=== PATIENT | female | born 1960 | race Caucasian/White ===

== ENCOUNTER 2016-09-09 11:32 | Day surgery (SDC) | payer MEDICARE, OTHER ==
--- NOTE | ~2016-09-09 | EGD ---
EGD REPORT [facility] [address] [address] NAME: SIMIN MOSQUERA : [birth year] STATUS : REG [facility] [place] PAT#: [id number] AGE: 56 ADM/REG DATE : 09/09/16 MR#: [id number] REPORT SERV DATE: 09/09/16 DICTATED BY: SARAH CISNEROS DATE: 09/09/16 REPORT STATUS : Draft TRANSCRIBED BY: [facility] DATE: 09/09/16 Endoscopy Center Patient Name: Simin Mosquera Date of : 1960 Attending MD: SARAH CISNEROS MD Procedure Date No Time: 09/09/2016 Procedure: Colonoscopy Indications: High risk colon cancer surveillance: Personal history of colonic polyps Referring MD: NEYMAR MAY Medicines: Monitored Anesthesia Care Complications: No immediate complications. Procedure: Pre-Anesthesia Assessment: - ASA Grade Assessment: IV - A patient with severe systemic disease that is a constant threat to life. After I obtained informed consent, the scope was passed under direct vision. Throughout the procedure, the patient's blood pressure, pulse, and oxygen saturations were monitored continuously. The PCF H190L [id number] was introduced through the anus and advanced to the sigmoid colon. The colonoscopy was performed with moderate difficulty due to poor bowel prep. The patient tolerated the procedure well. The quality of the bowel preparation was poor. Findings: The digital rectal exam was normal. Pertinent negatives include no palpable rectal lesions. A moderate amount of semi-solid stool was found in the rectum and in the sigmoid colon, interfering with visualization. Impression: - Preparation of the colon was poor. - Stool in the rectum and in the sigmoid colon. Recommendation: - Patient has a contact number available for emergencies. The signs and symptoms of potential delayed complications were discussed with the patient. Return to normal activities tomorrow. Written discharge instructions were provided to the patient. - Regular diet. - Continue present medications. - Repeat colonoscopy at the next available appointment because the bowel preparation was poor. - Use constipation prep for next exam. EGD REPORT [facility] [address] [address] NAME: SIMIN MOSQUERA : [birth year] STATUS : REG [facility]#: [id number] AGE: 56 ADM/REG DATE : 09/09/16 MR#: [id number] REPORT SERV DATE: 09/09/16 DICTATED BY: SARAH CISNEROS DATE: 09/09/16 REPORT STATUS : Draft TRANSCRIBED BY: Kuaidi Dache DATE: 09/09/16 Procedure Code(s): --- Professional --- 12031, 52, Colonoscopy, flexible, proximal to splenic flexure; diagnostic, with or without collection of specimen(s) by brushing or washing, with or without colon decompression (separate procedure) Diagnosis Code(s): --- Professional --- Z86.010, Personal history of colonic polyps CPT copyright 2013 [employer]. All rights reserved. The codes documented in this report are preliminary and upon machine stoppage frequency checker review may be revised to meet current compliance requirements. SARAH CISNEROS MD 09/09/2016 1:29 PM This report has been signed electronically. Number of Addenda: 0 Note Initiated On: 09/09/2016 1:01 PM Scope Withdrawal Time 0 hours 0 minutes 0 seconds [id number] [facility] [place] [id number]
--- NOTE | ~2016-09-09 | EGD ---
EGD REPORT [facility] [address] [address] NAME: SIMIN MOSQUERA : [birth year] STATUS : REG [facility] [place] PAT#: [id number] AGE: 56 ADM/REG DATE : 09/09/16 MR#: [id number] REPORT SERV DATE: 09/09/16 DICTATED BY: SARAH CISNEROS DATE: 09/09/16 REPORT STATUS : Draft TRANSCRIBED BY: [employer] DATE: 09/09/16 Endoscopy Center Patient Name: Simin Mosquera Date of : 1960 Attending MD: SARAH CISNEROS MD Procedure Date No Time: 09/09/2016 Procedure: Upper GI endoscopy Indications: Dysphagia, Heartburn Referring MD: NEYMAR MAY Medicines: Sedation Required Anesthesia Staff Assistance, Monitored Anesthesia Care Complications: No immediate complications. Procedure: Pre-Anesthesia Assessment: - ASA Grade Assessment: IV - A patient with severe systemic disease that is a constant threat to life. After obtaining informed consent, the endoscope was passed under direct vision. Throughout the procedure, the patient's blood pressure, pulse, and oxygen saturations were monitored continuously. The GIF H190 [id number] was introduced through the mouth, and advanced to the second part of duodenum. The upper GI endoscopy was accomplished without difficulty. The patient tolerated the procedure well. Findings: No endoscopic abnormality was evident in the esophagus to explain the patient's complaint of dysphagia. It was decided, however, to proceed with dilation of the entire esophagus. A guidewire was placed and the scope was withdrawn. Dilation was performed with a Savary dilator with no resistance at 48 Fr. Estimated blood loss: none. The Z-line was irregular and was found at the gastroesophageal junction. Biopsies were taken with a cold forceps for histology. Localized mild inflammation characterized by erythema was found in the gastric antrum. Biopsies were taken with a cold forceps for histology. The cardia and gastric fundus were normal on retroflexion. The duodenal bulb and 2nd part of the duodenum were normal. Impression: - No endoscopic esophageal abnormality to explain patient's dysphagia. Esophagus dilated. Dilated. - Z-line irregular, at the gastroesophageal junction. Biopsied. - Gastritis. Biopsied. - Normal duodenal bulb and 2nd part of the duodenum. Recommendation: - Patient has a contact number available for EGD REPORT [address] [address] NAME: SIMIN MOSQUERA : [birth year] STATUS : REG [facility] [place] PAT#: [id number] AGE: 56 ADM/REG DATE : 09/09/16 MR#: [id number] REPORT SERV DATE: 09/09/16 DICTATED BY: SARAH CISNEROS DATE: 09/09/16 REPORT STATUS : Draft TRANSCRIBED BY: [employer] DATE: 09/09/16 emergencies. The signs and symptoms of potential delayed complications were discussed with the patient. Return to normal activities tomorrow. Written discharge instructions were provided to the patient. - Regular diet. - Continue present medications. - Follow an antireflux regimen. Procedure Code(s): --- Professional --- 51760, Esophagogastroduodenoscopy, flexible, transoral; with insertion of guide wire followed by passage of dilator(s) through esophagus over guide wire 66579, Esophagogastroduodenoscopy, flexible, transoral; with biopsy, single or multiple Diagnosis Code(s): --- Professional --- R13.10, Dysphagia, unspecified K22.8, Other specified diseases of esophagus K29.70, Gastritis, unspecified, without bleeding R12, Heartburn CPT copyright 2013 [employer]. All rights reserved. The codes documented in this report are preliminary and upon project manager/team coach review may be revised to meet current compliance requirements. SARAH CISNEROS MD 09/09/2016 1:18 PM This report has been signed electronically. Number of Addenda: 0 Note Initiated On: 09/09/2016 1:05 PM Scope Withdrawal Time 0 hours 0 minutes 0 seconds [address] [place] [address]
[~2016-09-09 11:32] MED LIST: ACET500CAP PO; ADVAIR INH; ADVAIR250 INH; ALBUTEROL; ALLEGRA 180 MG180 MG PO; ALLEGRA180 PO; AMILORIDE5 MG PO; ASA5GR PO; ASTEPRO0.15 % NAS; CELEXA20 PO; ENDOCET1 TA3 PO; FLONASE NAS; FLONASE0.05 %; HCTZ25B PO; HCTZ50B PO; HUMALOG 50/50 SC; HUMALOG SC; HUMOLOG; HYDROCHLOROT12.5 MG PO; HYDROCHLOROT50 MG PO; KDUR20 PO; LEVOTHROID125 MCG PO; LEVOXYL100 MCG PO; LIPITOR80 MG PO; LOTENSIN HCT1 TA1 PO; MAGNESIUM PO; MSCONT15 PO; NEUR300 PO; NIASPAN500 PO; NOVOPENMIX SC; PRAVACHOL80 MG PO; PREM625 PO; PRILOSEC40 MG PO; PROAIR HFA INH; PROVHFA INH; SINGULAIR1 PO; SPIRO50 PO; SYMLIN SC; SYMLIN0.6 MG/ML SC; TOPAMAX100 PO; TOPAMAX200 MG PO; TRULICITY0.75 MG/0. SQ; V120 PO; VENTOLIN HFA INH; VIT D PO; VYTORIN 10/20 T1 TAB PO; ZANAFLEX4 MG PO; ZOCOR40 PO; ZYRTEC ALLGY10 MG PO
[2016-10-22] MEDS ORDERED: PRILOSEC40 MG PO (14:03)
== END 2016-09-09 23:59 | disposition home or self-care (01) ==
LOC: DMU 11:32
PROVIDERS: Internal Medicine Gastroenterology
PROC: 0D758ZZ Dilation of Esophagus, Via Natural or Artificial Opening Endoscopic (ICD-10-PCS; principal; 2016-09-09 13:00)
PROC: 0DJD8ZZ Inspection of Lower Intestinal Tract, Via Natural or Artificial Opening Endoscopic (ICD-10-PCS; 2016-09-09 13:00)
PROC: 0DB68ZX Excision of Stomach, Via Natural or Artificial Opening Endoscopic, Diagnostic (ICD-10-PCS; 2016-09-09 13:00)
DX: K29.50 Unspecified chronic gastritis without bleeding (principal); K20.9 Esophagitis, unspecified; K22.8 Other specified diseases of esophagus; F17.210 Nicotine dependence, cigarettes, uncomplicated; J45.909 Unspecified asthma, uncomplicated; I10 Essential (primary) hypertension; G47.33 Obstructive sleep apnea (adult) (pediatric); K21.9 Gastro-esophageal reflux disease without esophagitis; E11.9 Type 2 diabetes mellitus without complications; E03.9 Hypothyroidism, unspecified; Z86.010 Personal history of colon polyps
CPT/HCPCS: 82962; 88305

== ENCOUNTER 2016-10-28 08:39 | Day surgery (SDC) | payer MEDICARE, OTHER ==
--- NOTE | ~2016-10-28 | EGD ---
EGD REPORT [facility] [address] [place]. [address] NAME: SIMIN MOSQUERA : [birth year] STATUS : REG [facility]#: [id number] AGE: 56 ADM/REG DATE : 10/28/16 MR#: [id number] REPORT SERV DATE: 10/28/16 DICTATED BY: SARAH CISNEROS DATE: 10/28/16 REPORT STATUS : Draft [facility]: [facility] DATE: 10/28/16 Endoscopy Center Patient Name: Simin Mosquera Date of : 1960 Attending MD: SARAH CISNEROS MD Procedure Date No Time: 10/28/2016 Procedure: Colonoscopy Indications: Screening for colorectal malignant neoplasm Referring MD: NEYMAR MAY Medicines: Monitored Anesthesia Care Complications: No immediate complications. Procedure: Pre-Anesthesia Assessment: - ASA Grade Assessment: III - A patient with severe systemic disease. After I obtained informed consent, the scope was passed under direct vision. Throughout the procedure, the patient's blood pressure, pulse, and oxygen saturations were monitored continuously. The PCF H190L [id number] was introduced through the anus and advanced to the cecum, identified by appendiceal orifice and ileocecal valve. The colonoscopy was performed without difficulty. The patient tolerated the procedure well. The quality of the bowel preparation was adequate. Findings: The terminal ileum appeared normal. A sessile polyp was found in the descending colon. The polyp was 7 mm in size. The polyp was removed with a cold snare. Resection and retrieval were complete. Hemorrhoids were found during retroflexion and were mild. Impression: - The examined portion of the ileum was normal. - One 7 mm polyp in the descending colon. Resected and retrieved. - Hemorrhoids. Recommendation: - Patient has a contact number available for emergencies. The signs and symptoms of potential delayed complications were discussed with the patient. Return to normal activities tomorrow. Written discharge instructions were provided to the patient. - Regular diet. - Continue present medications. - Repeat colonoscopy in 5-10 years for surveillance based on pathology results. EGD REPORT [facility] [address] [place]. [address] NAME: SIMIN MOSQUERA MARCIO : [birth year] STATUS : REG [facility]#: [id number] AGE: 56 ADM/REG DATE : 10/28/16 MR#: [id number] REPORT SERV DATE: 10/28/16 DICTATED BY: SARAH CISNEROS DATE: 10/28/16 REPORT STATUS : Draft TRANSCRIBED BY: [employer] DATE: 10/28/16 - Return to GI clinic PRN. Procedure Code(s): --- Professional --- 53433, Colonoscopy, flexible, proximal to splenic flexure; with removal of tumor(s), polyp(s), or other lesion(s) by snare technique Diagnosis Code(s): --- Professional --- K64.9, Unspecified hemorrhoids D12.4, Benign neoplasm of descending colon Z12.11, Encounter for screening for malignant neoplasm of colon CPT copyright 2013 [employer]. All rights reserved. The codes documented in this report are preliminary and upon electric sign wirer review may be revised to meet current compliance requirements. SARAH CISNEROS MD 10/28/2016 9:46 AM This report has been signed electronically. Number of Addenda: 0 Note Initiated On: 10/28/2016 9:09 AM Scope Withdrawal Time 0 hours 13 minutes 48 seconds [address] [place] [address]
== END 2016-10-28 23:59 | disposition home or self-care (01) ==
LOC: DMU 08:39
PROVIDERS: Internal Medicine Gastroenterology
PROC: 0DBM8ZZ Excision of Descending Colon, Via Natural or Artificial Opening Endoscopic (ICD-10-PCS; principal; 2016-10-28 10:00)
DX: Z12.11 Encounter for screening for malignant neoplasm of colon (principal); D12.4 Benign neoplasm of descending colon; K64.9 Unspecified hemorrhoids; I10 Essential (primary) hypertension; E11.9 Type 2 diabetes mellitus without complications; J44.9 Chronic obstructive pulmonary disease, unspecified; G47.33 Obstructive sleep apnea (adult) (pediatric); E03.9 Hypothyroidism, unspecified; Z88.6 Allergy status to analgesic agent; Z88.1 Allergy status to other antibiotic agents; Z88.0 Allergy status to penicillin; Z91.040 Latex allergy status; Z79.4 Long term (current) use of insulin; Z79.82 Long term (current) use of aspirin; Z79.899 Other long term (current) drug therapy
CPT/HCPCS: 82962; 88305